=== PATIENT | female | born 1995 | race Caucasian/White ===

== ENCOUNTER → 2016-04-16 | Outpatient (CLI) | payer BC ==
[~2016-04-16] MED LIST: MOTRIN CHI100 MG/5 M PO; NO HOME MEDICATIONS; VICODIN 5/5001 UDTAB PO; ZYRTEC5 MG PO
== END ==
LOC: COL.RAD 12:22
DX: Z13.89 Encounter for screening for other disorder (principal)

== ENCOUNTER 2017-08-11 15:45 | Emergency (ER) | payer BC ==
[~2017-08-11] VITALS: Ht 157.5 cm; Wt 48.2 kg
[2017-08-11 15:49] VITALS: BP 135/85; TEMP 98.9
[2017-08-11 16:53] LABS: BASO # 0.1 (0.0-0.2); BASO % 0.8 % (0.0-2.0); EOS # 0.1 (0.0-0.7); EOS % 1.6 % (0-4.0); GRAN % 57.7 % (42.2-75.2); HEMATOCRIT 40.1 % (37.0-47.0); HEMOGLOBIN 13.6 g/dl (12.5-16.0); LYMPH # 2.7 (1.2-3.4); LYMPH % 31.8 % (20.0-51.0); MEAN CELL VOLUME 84 fl (80.0-100.0); MEAN CORPUSCULAR HEMOGLOBIN 29 pg (27.0-31.0); MEAN CORPUSCULAR HGB CONC 34 g/dl (33.0-37.0); MEAN PLATELET VOLUME 9.6 fl (7.4-10.4); MONO # 0.7 (0.1-0.6); MONO % 7.8 % (1.7-9.3); PLATELET COUNT 305 K/mm3 (130-400); RED BLOOD COUNT 4.78 M/mm3 (4.10-5.30); REDCELL DISTRIBUTION WIDTH-CV 12.6 % (11.5-14.5)
[2017-08-11 16:59] LABS: ALBUMIN 4.6 gm/dL (3.5-5.0); BILIRUBIN,TOTAL 0.5 mg/dL (0.0-1.0); CALCIUM 9.4 mg/dL (8.4-10.2); CREATININE, serum 0.57 mg/dL (0.52-1.25); POTASSIUM 3.6 mmol/L (3.4-5.0); TOTAL PROTEIN 8.9 gm/dL (6.4-8.2)
[2017-08-11 18:00] VITALS: PULSE 100
== END 2017-08-11 18:00 | disposition home or self-care (01) ==
LOC: COL.ER 15:45
PROVIDERS: Family Medicine
DX: K92.2 Gastrointestinal hemorrhage, unspecified (principal)
CPT/HCPCS: J2405; J7030

== ENCOUNTER → 2018-10-12 | Outpatient (CLI) | payer BC | LOC: COL.RAD 08:43 | DX: M51.36 Other intervertebral disc degeneration, lumbar region (principal) ==

== ENCOUNTER 2019-05-08 19:59 | Emergency (ER) | payer BC ==
[~2019-05-08] VITALS: Ht 157.5 cm; Wt 50.0 kg
[2019-05-08 20:02] VITALS: TEMP 97
[2019-05-08 21:23] LABS: BASO # 0.1 (0.0-0.2); BASO % 0.7 % (0.0-2.0); EOS % 0.3 % (0-4.0); GRAN % 75.3 % (42.2-75.2); HEMATOCRIT 46.1 % (37.0-47.0); HEMOGLOBIN 15.5 g/dl (12.5-16.0); LYMPH % 16.9 % (20.0-51.0); MEAN CELL VOLUME 89 fl (80.0-100.0); MEAN CORPUSCULAR HEMOGLOBIN 30 pg (27.0-31.0); MEAN CORPUSCULAR HGB CONC 34 g/dl (33.0-37.0); MEAN PLATELET VOLUME 9.5 fl (7.4-10.4); MONO # 0.8 (0.1-0.6); MONO % 6.4 % (1.7-9.3); PLATELET COUNT 240 K/mm3 (130-400); RED BLOOD COUNT 5.16 M/mm3 (4.10-5.30); REDCELL DISTRIBUTION WIDTH-CV 14.2 % (11.5-14.5)
[2019-05-08 21:37] LABS: ALBUMIN 5.1 gm/dL (3.5-5.0); BILIRUBIN,TOTAL 0.4 mg/dL (0.0-1.0); CALCIUM 9.5 mg/dL (8.4-10.2); CREATININE, serum 0.49 (0.52-1.25); TOTAL PROTEIN 8.7 gm/dL (6.4-8.2)
[2019-05-08] MEDS ORDERED: NORCO 325 MG-51 TAB PO (22:20)
[2019-05-08 22:39] VITALS: BP 99/79; PULSE 92
== END 2019-05-08 22:39 | disposition home or self-care (01) ==
LOC: COL.ER 19:59
PROVIDERS: Emergency Medicine
DX: S42.002A Fracture of unspecified part of left clavicle, initial encounter for closed fracture (principal); S60.811A Abrasion of right wrist, initial encounter; F10.129 Alcohol abuse with intoxication, unspecified; R40.2412 Glasgow coma scale score 13-15, at arrival to emergency department; Y90.8 Blood alcohol level of 240 mg/100 ml or more; V47.5XXA Car driver injured in collision with fixed or stationary object in traffic accident, initial encounter
CPT/HCPCS: J1885; J7030

== ENCOUNTER → 2019-09-16 | Outpatient (CLI) | payer BC ==
[~2019-09-16] MED LIST changes: +NORCO 325 MG-51 TAB PO
== END ==
LOC: COL.PUL 08:00
DX: R06.02 Shortness of breath (principal)